=== PATIENT | male | born 1995 | race African-American/Black ===

== ENCOUNTER 2016-08-03 03:53 | Emergency (ER) | payer MEDICAID ==
[~2016-08-03] VITALS: Ht 175.3 cm; Wt 65.8 kg
[2016-08-03] MEDS ORDERED: NKM (04:00)
[2016-08-03 04:16] VITALS: BP 111/65
[2016-08-03] MEDS ORDERED: HYDROCODON-ACE1 EA15 ORAL (04:19)
[2016-08-03] MEDS ORDERED: AMOXICILLIN500 MG ORAL (04:19)
--- NOTE | 2016-08-03 04:20 | Emergency Room Report ---
History of Present Illness General Chief Complaint: Earache Source: Patient Present Illness [facility] This is a 20-year-old male with no past medical history. He presents with chief complaint of sore throat, earache for the last 5 days. Pain is 9/10. Worse with swallowing. No drooling. No relief with ibuprofen. [place] tired also. Denies any other complaint. No cough or congestion. No fever or chills. Allergies: Coded Allergies: No Known Allergies (Unverified , 08/03/16) Patient History Past Medical History: none Past Surgical History: none Pertinent Family History: none Social History: Denies: smoking Immunizations: UTD Reviewed Nursing Documentation: PMH: Agreed, PSxH: Agreed Nursing Documentation-PMH Past Medical History: No Stated History Review of Systems Eye: Denies: blurred vision, eye pain ENT: Reports: throat pain, Denies: ear pain, nose congestion, throat swelling Respiratory: Denies: cough, shortness of breath Cardiovascular: Denies: chest pain, palpitations Gastrointestinal: Denies: abdominal pain, diarrhea, nausea, vomiting Musculoskeletal: Denies: back pain, joint pain Skin: Denies: rash Neurological: Denies: headache, numbness Endocrine: Denies: increased thirst, increased urine Hematologic/Lymphatic: Denies: easy bruising All Other Systems: negative except mentioned in HPI Physical Exam Vital Signs Date Time Temp Pulse Resp B/P Pulse Ox O2 Delivery O2 Flow Rate FiO2 08/03/16 03:57 97.9 70 16 111/65 98 Room Air vitals normal Sp02 EP Interpretation: reviewed, normal General Appearance: well appearing, no apparent distress, alert Head: normocephalic, atraumatic Eyes: bilateral eye EOMI, bilateral eye PERRL ENT: hearing grossly normal, tonsillar exudate, other - Left TM is dull with air fluid levels Neck: full range of motion, supple, no meningismus Respiratory: chest non-tender, lungs clear, normal breath sounds Cardiovascular #1: regular rate, rhythm, no murmur Gastrointestinal: normal bowel sounds, non tender, no mass, no organomegaly, no bruit, non-distended Musculoskeletal: back normal, gait/station normal, normal range of motion Psychiatric: mood/affect normal Skin: warm/dry Medical Decision Making Diagnostic Impression: Primary Impression: Acute tonsillitis Qualified Codes: J03.90 - Acute tonsillitis, unspecified Additional Impression: Acute otitis media with effusion of left ear ER Course Patient with sore throat and ear pain. Most likely viral in nature. Now with secondary infection. No evidence of meningitis, sepsis, retropharyngeal abscess , peritonsillar abscess, or Real angina. We'll discharge home. Last Vital Signs Date Time Temp Pulse Resp B/P Pulse Ox O2 Delivery O2 Flow Rate FiO2 08/03/16 03:57 97.9 70 16 111/65 98 Room Air Status: improved Disposition: HOME, SELF-CARE Condition: Stable Scripts Hydrocodone/Acetaminophen 5-325* (HYDROCODONE/ACETAMINOPHEN 5-325*) 1 Each Tablet 1 TAB ORAL Q6H Y for For Pain, #15 TAB 0 Refills Prov: MARBIN POE M.D. 08/03/16 Amoxicillin* (AMOXIL*) 500 Mg Capsule 500 MG ORAL THREE TIMES A DAY, #21 CAP Prov: MARBIN POE M.D. 08/03/16 Patient Instructions: Otitis Media, Adult, [id number] Additional Instructions: Followup with your DrLawanda in 7 days. Increase fluids. Return if symptom worsen. MARBIN POE M.D. Aug 03, 2016 04:20
[2016-08-03 04:25] VITALS: BP 111/65
[2016-08-03] MEDS ORDERED: Norco 5mg/325mg tab ORAL ONE (04:30)
[2016-08-03] MEDS ORDERED: PredniSONE 20mg tab ORAL ONE (04:30)
== END 2016-08-03 04:30 | disposition home or self-care (01) ==
LOC: EMR 04:30
DX: J03.90 Acute tonsillitis, unspecified (principal); H65.92 Unspecified nonsuppurative otitis media, left ear; H92.02 Otalgia, left ear; J02.9 Acute pharyngitis, unspecified
CPT/HCPCS: 99284

== ENCOUNTER 2018-03-01 13:59 | Emergency (ER) | payer MEDICAID ==
[~2018-03-01] VITALS: Ht 177.8 cm; Wt 70.3 kg
[~2018-03-01 13:59] MED LIST: AMOXICILLIN500 MG ORAL; HYDROCODON-ACE1 EA15 ORAL; NKM
[2018-03-01 14:02] VITALS: BP 134/86
--- NOTE | 2018-03-01 14:18 | NUR ---
ED Nurse Note: sore throat x 3 days; pain with swallowing, but able to tolerate oral intake. Reports no fever or chills. Attemtped to relieve with salt water gargle and Tylenol.
--- NOTE | 2018-03-01 14:33 | Emergency Room Report ---
History of Present Illness General Chief Complaint: Sore Throat Source: Patient Present Illness HPI 22-year-old male with no significant past medical history here complaining of 3 days of sore throats and mild cough. Patient denies fever, chills, rhinorrhea, congestion, shortness of breath, chest pain, palpitation, abdominal pain, nausea vomiting, diarrhea. Patient is raising his throat pain 3 out of 10 upon swallowing. Is able to take oral hydration. Not taking any medication for pain. Denies sick contacts or recent travel. Allergies: Coded Allergies: No Known Allergies (Unverified , 08/03/16) Patient History Past Medical History: see triage record Past Surgical History: none Pertinent Family History: none Immunizations: UTD Reviewed Nursing Documentation: PMH: Agreed; PSxH: Agreed Nursing Documentation-PMH Past Medical History: No Stated History Review of Systems All Other Systems: negative except mentioned in HPI Physical Exam Vital Signs Date Time Temp Pulse Resp B/P (MAP) Pulse Ox O2 Delivery O2 Flow Rate FiO2 03/01/18 14:02 99.0 62 14 134/86 98 Room Air Sp02 EP Interpretation: reviewed, normal General Appearance: normal inspection, well appearing, no apparent distress, alert Head: normocephalic Eyes: bilateral eye normal inspection, bilateral eye PERRL ENT: hearing grossly normal, no angioedema, normal voice, TMs + canals normal, uvula midline, other - pharyngeal erythema Neck: normal inspection, full range of motion, supple Respiratory: normal inspection, chest non-tender, lungs clear, no rhonchi, no wheezing Cardiovascular #1: normal inspection, no edema, no murmur Gastrointestinal: normal inspection, non tender, soft Rectal: deferred Genitourinary: deferred Musculoskeletal: normal inspection, back normal Neurologic: normal inspection, alert, oriented x3, responsive Psychiatric: normal inspection, judgement/insight normal Skin: normal inspection, normal color, no rash, warm/dry Lymphatic: normal inspection, no adenopathy Medical Decision Making PA Attestation All diagnosis and treatment plans are reviewed and discussed with my supervising physician Dr. Sosa Diagnostic Impression: Primary Impression: Upper respiratory infection ER Course 22-year-old male with no significant past medical history here complaining of 3 days of sore throats and mild cough. Patient denies fever, chills, rhinorrhea, congestion, shortness of breath, chest pain, palpitation, abdominal pain, nausea vomiting, diarrhea. Patient is raising his throat pain 3 out of 10 upon swallowing. Is able to take oral hydration. Not taking any medication for pain. Denies sick contacts or recent travel. Ddx considered but are not limited to URI, strep pharyngitis, tonsillitis, Vital signs: are WNL, pt. is afebrile H&PE are most consistent with URI ORDERS: guaifenesin, ibuprofen ED INTERVENTIONS: None required at this time. DISCHARGE: At this time pt. is stable for d/c to home. Will provide printed patient care instructions, and any necessary prescriptions. Care plan and follow up instructions have been discussed with the patient prior to discharge. Last Vital Signs Date Time Temp Pulse Resp B/P (MAP) Pulse Ox O2 Delivery O2 Flow Rate FiO2 03/01/18 14:02 99.0 62 14 134/86 98 Room Air Disposition: HOME, SELF-CARE Condition: Stable Scripts Guaifenesin* (ADULT WAL-TUSSIN*) 100 Mg/5 Ml Liquid 5 ML ORAL Q4H, #120 ML Prov: Abdirizak Broderick 03/01/18 Ibuprofen* (MOTRIN*) 600 Mg Tablet 600 MG ORAL Q8H PRN for For Pain, #20 TAB 0 Refills Prov: Abdirizak Broderick 03/01/18 Patient Instructions: Tonsillitis, Upper Respiratory Infection, Adult, Easy-to- Read Additional Instructions: patient medication as directed, avoid smoking marijuana as able irritate your throat more, avoid spicy foods, use salt water to gargle Abdirizak Broderick Mar 01, 2018 14:33
[2018-03-01] MEDS ORDERED: IBUPROFEN600 MG ORAL (14:35)
[2018-03-01] MEDS ORDERED: ADULT WAL-100 MG/5 M ORAL (14:35)
[2018-03-01 14:38] VITALS: BP 134/86
--- NOTE | 2018-03-01 14:39 | NUR ---
ED Nurse Note: Patient is being discharged from medical care. Awake, alert and oriented x4. After care instructions, were given. Patient verbalized understanding of After care instructions All medical devices such as ID band were removed. Patient ambulated out with all personal belongings with steady gait.
== END 2018-03-01 14:45 | disposition home or self-care (01) ==
LOC: EMR 14:39
DX: J06.9 Acute upper respiratory infection, unspecified (principal)
CPT/HCPCS: 99283

== ENCOUNTER 2018-05-04 10:23 | Emergency (ER) | payer MEDICAID ==
[~2018-05-04] VITALS: Ht 175.3 cm; Wt 70.3 kg
[~2018-05-04 10:23] MED LIST changes: +ADULT WAL-100 MG/5 M ORAL; +IBUPROFEN600 MG ORAL
--- NOTE | 2018-05-04 10:45 | NUR ---
ED Nurse Note: Pt came in from home due to coughing and "scratching feeling on chest" x 1 week. Pain 9/10 juani. AOx4, VSS. Will cont to monitor.
--- NOTE | 2018-05-04 10:55 | NUR ---
EKG WAS DONE, ORIGINAL WAS GIVEN TO , NO ORDER PLACED AT THIS TIME.
[2018-05-04] MEDS ORDERED: ALBUTEROL SULF8.5 GM INH (11:35)
[2018-05-04] MEDS ORDERED: PREDNISONE20 MG ORAL (11:35)
[2018-05-04 11:43] VITALS: BP 138/87
--- NOTE | 2018-05-04 12:03 | NUR ---
ED DISCHARGE NOTE: pt cleared to be d/c per ERMD, pt discharge and after care instruction provided w/ prsecription sent electronically, pt advised to follow up with pcp or return to ed if sx worsen or new sx develop, pt education done via discussion and hand out, pt verbalized understanding and agrees with plan, vss, resp even and unlabored on RA, ambulatory w/ steady gait, left w/ all belongings, wristband removed.
[2018-05-04 12:04] VITALS: BP 129/68
--- NOTE | 2018-05-11 09:45 | Emergency Room Report ---
History of Present Illness General Chief Complaint: Upper Respiratory Illness Source: Patient Present Illness HPI Patient is a 22-year-old male who presented after increased cough and chest discomfort. Patient reports having increased cough for several days. He reports of increased pain with coughing. He denies any fever.Patient reports having cough persistent for 1 week. Allergies: Coded Allergies: No Known Allergies (Unverified , 08/03/16) Patient History Past Medical History: see triage record Reviewed Nursing Documentation: PMH: Agreed; PSxH: Agreed Nursing Documentation-PMH Past Medical History: No Stated History Review of Systems All Other Systems: negative except mentioned in HPI Physical Exam General Appearance: well appearing, no apparent distress, alert, GCS 15 Head: normocephalic, atraumatic ENT: hearing grossly normal, normal voice Neck: full range of motion, supple Respiratory: normal inspection, no respiratory distress, speaking full sentences, wheezing, other - chest wall tenderness Gastrointestinal: normal inspection Musculoskeletal: normal inspection, back normal, gait/station normal, no calf tenderness Neurologic: normal inspection, alert, oriented x3, responsive, normal gait Psychiatric: mood/affect normal Skin: no rash Medical Decision Making Diagnostic Impression: Primary Impression: Chest wall pain Additional Impression: Viral respiratory infection ER Course Patient presented for chest pain. Differential diagnosis included but was not limited to acute coronary syndrome, pulmonary embolism, pneumonia, aortic dissection, shingles, pneumothorax, aortic dissection, esophageal rupture, pericarditis. Patient has a benign exam and does not appear to require any laboratory testing at this time. Patient was noted to have significant chest wall tenderness on exam. Patient does not appear to have any significant risk for pulmonary embolism or acute coronary syndrome.Patient was noted to have some nonproductive cough and was started on oral steroids and given breathing treatment. Patient was advised to follow-up with primary care physician for recheck. Status: improved Disposition: HOME, SELF-CARE Condition: Stable Scripts Prednisone* (PREDNISONE*) 20 Mg Tablet 40 MG ORAL DAILY, #10 TAB Prov: Mat Mejia MD 05/04/18 Albuterol Sulfate* (ALBUTEROL SULFATE MDI*) 8.5 Gm Hfa.aer.ad 2 PUFF INH Q6H, #1 INH 0 Refills Prov: Mat Mejia MD 05/04/18 Referrals: [facility]REFERR[facility] (PCP) Patient Instructions: Chest Wall Pain Mat Mejia MD May 11, 2018 09:45
== END 2018-05-04 12:06 | disposition home or self-care (01) ==
LOC: EMR 10:43
DX: R07.89 Other chest pain (principal); B34.9 Viral infection, unspecified
CPT/HCPCS: 71045; 99283

== ENCOUNTER 2018-05-17 05:34 | Emergency (ER) | payer SELFPAY ==
[~2018-05-17] VITALS: Ht 177.8 cm; Wt 70.3 kg
[~2018-05-17 05:34] MED LIST changes: +ALBUTEROL SULF8.5 GM INH; +PREDNISONE20 MG ORAL
--- NOTE | 2018-05-17 05:51 | NUR ---
ED Nurse Note: Patient has complaints of sore throat x 1month with h/o of antibiotic use.
[2018-05-17 05:52] VITALS: BP 122/81
[2018-05-17] MEDS ORDERED: PRILOSEC OTC20 MG ORAL (05:58)
--- NOTE | 2018-05-17 05:58 | Emergency Room Report ---
History of Present Illness General Chief Complaint: Sore Throat Source: Patient Present Illness [facility] This is a 22-year-old male with no past medical history. He presents with chief point sore throat. He said his been ongoing for over a month. He's been here in February for sore throat. He was here couple years ago for the same thing. Said is not better. He also seen at [facility]. He's been on a couple of antibiotics this month alone without any relief. Denies any fever chills denies any nausea vomiting. Pain is 5 out of 10. Worse with swallowing. Denies any other complaint. No fever chills but no cough or congestion. Allergies: Coded Allergies: No Known Allergies (Unverified , 08/03/16) Patient History Past Medical History: see triage record, old chart reviewed Past Surgical History: none Pertinent Family History: none Social History: Denies: smoking Immunizations: other Reviewed Nursing Documentation: PMH: Agreed; PSxH: Agreed Nursing Documentation-PM Past Medical History: No Stated History Review of Systems Eye: Denies: eye pain, blurred vision ENT: Reports: throat pain; Denies: ear pain, nose congestion, throat swelling Respiratory: Denies: cough, shortness of breath Cardiovascular: Denies: chest pain, palpitations Gastrointestinal: Denies: abdominal pain, diarrhea, nausea, vomiting Musculoskeletal: Denies: back pain, joint pain Skin: Denies: rash Neurological: Denies: headache, numbness Endocrine: Denies: increased thirst, increased urine Hematologic/Lymphatic: Denies: easy bruising All Other Systems: negative except mentioned in HPI Physical Exam Vital Signs Date Time Temp Pulse Resp B/P (MAP) Pulse Ox O2 Delivery O2 Flow Rate FiO2 05/17/18 05:38 97.5 70 16 122/81 100 Room Air vitals normal Sp02 EP Interpretation: reviewed, normal General Appearance: well appearing, no apparent distress, alert Head: normocephalic, atraumatic Eyes: bilateral eye PERRL, bilateral eye EOMI ENT: hearing grossly normal, normal pharynx, uvula midline - Uvula elongated Neck: full range of motion, supple, no meningismus Respiratory: chest non-tender, lungs clear, normal breath sounds Cardiovascular #1: regular rate, rhythm, no murmur Gastrointestinal: normal bowel sounds, non tender, no mass, no organomegaly, no bruit, non-distended Musculoskeletal: back normal, gait/station normal, normal range of motion Psychiatric: mood/affect normal Skin: warm/dry Medical Decision Making Diagnostic Impression: Primary Impression: Sore throat ER Course Patient with sore throat. No evidence of infection. Told patient that this is not bacterial infection since been ongoing for a month. I see no mass. I see no trismus. No evidence of any abscess. This could be allergic reaction, reflux to name a few. We'll discharge home. Last Vital Signs Date Time Temp Pulse Resp B/P (MAP) Pulse Ox O2 Delivery O2 Flow Rate FiO2 05/17/18 05:52 97.5 78 16 122/81 100 Room Air Status: unchanged Disposition: HOME, SELF-CARE Condition: Stable Scripts Omeprazole Magnesium (PRILOSEC OTC) 20 Mg Tablet. 20 MG ORAL DAILY, #30 TAB Prov: Emir Bowen MD 05/17/18 Referrals: [facility]REFERRING (PCP) Patient Instructions: Sore Throat Additional Instructions: Follow-up with your doctor in 7 days. You may need a referral to see ENT specialist. Return if symptom worsen. Emir Bowen MD May 17, 2018 05:58
--- NOTE | 2018-05-17 06:11 | NUR ---
ED Nurse Note: Patient cleared for discharge, patient ambulatory with steady gait, has no s/s of acute distress and is A&Ox4. Patient ID band was removed, patient departed with all belongings after verbalizing understanding of discharge instructions.
[2018-05-17 06:12] VITALS: BP 122/81
== END 2018-05-17 06:13 | disposition home or self-care (01) ==
LOC: EMR 05:55
DX: J02.9 Acute pharyngitis, unspecified (principal)
CPT/HCPCS: 99281